=== PATIENT | male | born 1985 | race Caucasian/White ===

== ENCOUNTER 2016-09-24 06:51 | Inpatient (IN) | payer BC ==
[2016-09-15 09:28] VITALS: BMI 38.0
--- NOTE | 2016-09-15 09:53 | PAT Medication Instructions ---
Service Date Sep 15, 2016. Current Home Medication List Acetaminophen (Tylenol), 1,400 MG PO PRN Fluoxetine (Prozac), 20 MG PO QAM Medication Instructions For Your Scheduled Surgery - Take the following medications the morning of surgery with a sip of water OTHERWISE NOTHING TO EAT OR DRINK AFTER MIDNIGHT: Acetaminophen (Tylenol), 1,400 MG PO PRN (MAY TAKE IF NEEDED UP TO 4 HOURS PRIOR TO SURGERY) Fluoxetine (Prozac), 20 MG PO QAM If you have any questions please call us at [phone] or [phone] or [phone]
--- NOTE | 2016-09-15 10:33 | DIAGNOSTIC IMAGING REPORT ---
CHEST PREADMISSION(PA/LAT) CLINICAL HISTORY: PAT preoperative evaluation COMPARISON STUDY: No previous studies for comparison. FINDINGS: The bones soft tissues and hemidiaphragms are normal. The cardiomediastinal silhouette is normal. The lungs are clear. The pulmonary vasculature is normal. IMPRESSION: Negative chest. Electronically signed by: Bijan Sidhu M.D. 09/15/2016 10:32 AM Dictated Date/Time: 09/15/2016 10:30 AM
[2016-09-15 10:56] LABS: URINE APPEARANCE CLEAR (CLEAR); URINE BILIRUBIN NEG (NEG); URINE COLOR YELLOW; URINE NITRITE NEG (NEG); URINE PH 5.5 (4.5-7.5); URINE SPECIFIC GRAVITY 1.022 (1.000-1.030); UROBILINOGEN NEG (NEG)
[2016-09-15 10:56] LABS: BASO % 0.4 %; BASO ABS # 0.02 K/uL (0-0.2); COMPLETE YES; EOS % 2.9 %; HEMATOCRIT 48.7 % (42-52); IG% 0.4 %; LYMPH % 26.5 %; LYMPH ABS # 1.46 K/uL (1.2-3.4); MEAN CELL VOLUME 83.1 fL (80-100); MEAN CORPUSCULAR HEMOGLOBIN 28.5 pg (25-34); MEAN CORPUSCULAR HGB CONC 34.3 g/dl (32-36); NEUT % 57.8 %; PLATELET COUNT 200 K/uL (130-400); RED BLOOD COUNT 5.86 M/uL (4.7-6.1); WHITE BLOOD COUNT 5.51 K/uL (4.8-10.8)
[2016-09-15 11:07] LABS: MANUAL MICROSCOPIC REQUIRED? NO; REVIEW REQ? NO
[2016-09-15 11:20] LABS: BUN/CREATININE RATIO 12.6 (10-20); CALCIUM 9.5 mg/dl (8.5-10.1); CREATININE 1.2 mg/dl (0.60-1.40); POTASSIUM 4.1 mmol/L (3.5-5.1)
[~2016-09-24] VITALS: Ht 177.8 cm; Wt 121.1 kg
[2016-09-24] VITALS (16 sets, daily range): BP systolic 113–136; BP diastolic 69–80; PULSE 63–89; TEMP 36.5–37.5; O2SAT 92–99; Ht 177.8 cm; Wt 121.1 kg
[~2016-09-24 06:51] MED LIST: ACET-1311 PO; CEFAZOLIN 3000 MG/65 ML D5W IV SCH; CeleBREX 200 MG CAP PO SCH; FLUO20CA35 PO; LACTATED RINGER'S 1000ML 1,000 ML IV SCH; PREGABALIN 75 MG CAP PO SCH
[2016-09-24] MEDS ORDERED: EpHEDrine SULFATE INJ 50 MG/ML AMP IV PRN (08:15)
[2016-09-24] MEDS ORDERED: ONDANSETRON INJ 2 MG/ML 2 ML VIAL IV PRN ×2 (08:15→12:00)
[2016-09-24] MEDS ORDERED: ATROPINE SULFATE 0.1 MG/ML 5ML SYR IV PRN (08:15)
[2016-09-24] MEDS ORDERED: EpHEDrine SULFATE INJ 50 MG/ML AMP ONE (08:52)
[2016-09-24] MEDS ORDERED: DEXAMETHASONE SOD INJ 4 MG/ML VIAL ONE (08:52)
[2016-09-24] MEDS ORDERED: ROCURONIUM BROMIDE 10 MG/ML 5 ML VIAL ONE (08:52)
[2016-09-24] MEDS ORDERED: SUCCINYLCHOLINE CHLORIDE 20 MG/ML 10 ML VIAL IV ONE (08:52)
[2016-09-24] MEDS ORDERED: LIDOCAINE HCL 2% 2 ML VIAL (20MG/ML) ONE (08:52)
[2016-09-24] MEDS ORDERED: NEOSTIGMINE METHYLSULFATE 5 MG/5 ML SYR ONE (08:52)
[2016-09-24] MEDS ORDERED: FENTANYL CITRATE INJ 50 MCG/1 ML 2 ML VIAL ONE ×3 (08:52→11:05)
[2016-09-24] MEDS ORDERED: ONDANSETRON INJ 2 MG/ML 2 ML VIAL ONE (08:52)
[2016-09-24] MEDS ORDERED: PHENYLEPHRINE HCL INJ 10 MG/ML VIAL ONE (08:52)
[2016-09-24] MEDS ORDERED: MIDAZOLAM HCL 1 MG/ML 2ML VIAL ONE (08:52)
[2016-09-24] MEDS ORDERED: GLYCOPYRROLATE INJ 0.2 MG/ML VIAL ONE ×2 (08:52→11:35)
[2016-09-24] MEDS ORDERED: PROPOFOL IV EMULSION 10 MG/ML 20 ML VIAL IV ONE (08:52)
--- NOTE | 2016-09-24 09:08 | History and Physical ---
History & Physical Date Sep 24, 2016. Chief Complaint neck and L arm pain History of Present Illness The patient is a 31 year old male with complaints of above for years. he has numbness into L hand. no R arm symptoms. no myelopathy. chronic headaches. failed conservative treatment. MRI show cervical HNP C5-7. L sided and central. Past Medical/Surgical History wrist surgery Additional History Hepatic Disease: No Endocrine Disorder: No Kidney Disease: No Heart Disease: No Bleeding Tendencies: No Infectious Diseases: No Allergies Coded Allergies: No Known Allergies (Unverified , 09/24/16) Home Medications Scheduled Acetaminophen (Tylenol), 1,400 MG PO PRN Fluoxetine (Prozac), 20 MG PO QAM Physical Examination Skin: warm/dry Eyes: normal inspection, sclerae normal ENT: normal ENT inspection, pharynx normal Head: normocephalic, atraumatic Neck: supple, trachea midline Respiratory/Chest: lungs clear, no respiratory distress Cardiovascular: regular rate, rhythm Back: normal inspection Extremities: normal inspection, normal range of motion Neurologic/Psych: no motor/sensory deficits, alert, normal reflexes, oriented x 3 Diagnosis C5-7 HNP Plan of Treatment C5-7 ACDF
[2016-09-24] MEDS ORDERED: BACITRACIN 50000 UNIT VIAL ONE (09:27)
[2016-09-24] MEDS ORDERED: THROMBIN 5000 UNITS KIT ONE (09:27)
[2016-09-24] MEDS ORDERED: LARYING-O-JET KIT (LTA) EXT ONE ×2 (10:30)
--- NOTE | 2016-09-24 11:41 | [facility] Post Operative Brief Note ---
Immediate Operative Summary Operative Date Sep 24, 2016. Pre-Operative Diagnosis C5-C7 Herniated Nucleus Pulposus Post-Operative Diagnosis C5-C7 Herniated Nucleus Pulposus Procedure(s) Performed C5-C7 Anterior Cervical Discectomy and Fusion Surgeon Dr. David Lopez Terminal System Operator Surgeon(s) Zachary Hirsch PA-C Estimated Blood Loss 10ML Findings dict Specimens none per surgeon Dr. David Lopez
[2016-09-24] MEDS ORDERED: FLOSEAL HEMOSTATIC MATRIX 5ML TOP ONE (11:42)
[2016-09-24] MEDS ORDERED: OXYC-57 PO (11:45)
--- NOTE | 2016-09-24 11:46 | Discharge Instructions ---
Discharge Instructions Admission Reason for Admission: Cervical Spinal Stenosis Discharge Discharge Diagnosis / Problem: Cervical Stenosis Discharge Goals Goal(s): Decrease discomfort, Improve function, Increase independence Activity Recommendations Activity Limitations: as noted below Lifting Limitations: no more than 5 pounds Exercise/Sports Limitations: until after follow-up appointment May Resume Sexual Activity: after follow-up appointment Shower/Bathe: may shower/bathe in 3 days . Instructions / Follow-Up Instructions / Follow-Up ACTIVITY RECOMMENDATIONS: SELF CARE INSTRUCTIONS AFTER CERVICAL FUSIONS 1. No smoking. Smoking drastically decreases the chance of a solid fusion. 2. No bending, lifting more than 5 pounds, or twisting (roll like a log when turning in bed). 3. You may shower 3 days after surgery. Thoroughly dry wound. Do not soak in the tub. 4. Cervical collar: Must be worn at all times including sleeping. You may remove the brace only to bath, eat and if you are sitting in a recliner. 5. Please walk as much as you can for exercise. Gradually increase the distance that you walk as your endurance increases. SPECIAL CARE INSTRUCTIONS: VERY IMPORTANT TO READ AND REVIEW A. Do not take any anti-inflammatory medications (i.e. Indocin, Advil, Aspirin, Naprosyn, Aleve, Motrin, etc.) as these may inhibit the chance of a solid fusion. Tylenol is okay to take. B. Your surgical incision has been closed with a cosmetic suture under the skin that will dissolve in about 6 weeks. In 14 days, you can use a pair of clean scissors and cut the suture that is left outside of the skin at the ends of your incision. C. Complications are uncommon, but please contact us if you have any signs or symptoms of: 1. wound infection (fever higher than 102.5 degrees F, redness, separation of wound, drainage, or increasing pain from the incision) 2. blood clots in legs (pain, swelling, redness and warmth in legs) 3. urinary tract infection (fever higher than 102.5 degrees, burning upon urination or increased frequency of urination) 4. nerve problems (inability to walk on your toes or heels, numbness, loss of bowel or bladder control) 5. any other symptoms that concern you. D. Please call the office at if you have any concerns or questions about your operation or recovery. MANAGING PAIN AFTER SPINAL SURGERY 1. Narcotic medication is intended for short-term use and will be provided for surgical pain. Surgical pain usually lasts for a period of 4-6 weeks. Narcotic medication includes Percocet, Vicodin, Darvocet, Tylenol #3 or Lortab. 2. Longer-term pain is more appropriately treated with non-narcotic medication such as Tylenol ES. 3. Muscle spasm is not appropriately treated with narcotics. Muscle relaxers such as Soma, Flexeril or Skelaxin can be used along with Tylenol ES. 4. Remember that we all live with some "aches and pains". This is not unusual or uncommon after an injury or as we get older. 5. We will provide appropriate medication within the normal guidelines of their prescribed use. We will also be very cautious and aware of potential abuse and extended duration of patients' medication needs. 6. Please allow 2-3 days to process refills. Prescriptions will not be mailed but must be picked up at the office. FOLLOW UP VISIT: Keep your scheduled follow-up appointment. Any questions, please call the office at . Current Hospital Diet Patient's current hospital diet: Discharge Diet Recommended Diet: Regular Diet Procedures Procedures Performed: C5-C7 Anterior Cervical Discectomy and Fusion Pending Studies Studies pending at discharge: no Medical Emergencies . Who to Call and When: Medical Emergencies: If at any time you feel your situation is an emergency, please call 911 immediately. . Non-Emergent Contact Non-Emergency issues call your: Surgeon Call Non-Emergent contact if: temperature is above 101, your pain is not controlled, your pain is worsening, your pain is unusual for you, your pain is concerning you, wound has increased drainage, wound has increased redness, wound has increased pain, you have any medication questions . "Provider Documentation" section prepared by Shmuel Hirsch. VTE Core Measure Inpt VTE Proph given/why not?: Jose Alberto Jimenez
[2016-09-24] MEDS ORDERED: NALOXONE HCL 0.4 MG/1 ML VIAL/CARP IV PRN (12:00)
[2016-09-24] MEDS ORDERED: OXYCODONE HCL IR 5 MG TAB (IMMEDIATE RELEASE) PO PRN (12:00)
[2016-09-24] MEDS ORDERED: ACETAMINOPHEN IV 1,000 MG in EMPTY BAG 0 ML IV PRN (12:00)
[2016-09-24] MEDS ORDERED: LORAZEPAM 0.5 MG TAB PO PRN (12:00)
[2016-09-24] MEDS ORDERED: DEXAMETHASONE INJ 8 MG in SYRINGE 0 ML IV PRN (12:00)
[2016-09-24] MEDS ORDERED: RACEPINEPHRINE 2.25% NEBU SOLN 0.5 ML VIAL INH PRN (12:00)
[2016-09-24] MEDS ORDERED: LORAZEPAM INJ 0.5 MG in SYRINGE 0.75 ML IV PRN (12:00)
[2016-09-24] MEDS: FENTANYL CITRATE INJ 50 MCG/1 ML 2 ML VIAL IV PRN ×3 (12:15→12:53)
--- NOTE | 2016-09-24 13:38 | Anesthesiology Progress Note ---
Anesthesia Post Op Note Date & Time Sep 24, 2016 at 13:39 Vital Signs Pain Intensity: 3 Vital Signs Past 12 Hours Date Time Temp Pulse Resp B/P Pulse Ox O2 Delivery O2 Flow Rate FiO2 09/24/16 13:15 70 16 127/70 95 Nasal Cannula 2 09/24/16 13:05 70 16 131/80 94 Nasal Cannula 2 09/24/16 12:55 72 16 138/72 95 Nasal Cannula 2 09/24/16 12:45 71 16 140/77 95 Nasal Cannula 2 09/24/16 12:35 73 14 141/77 96 Nasal Cannula 2 09/24/16 12:25 81 16 144/79 92 Room Air 09/24/16 12:15 74 12 152/91 98 Mask 10 09/24/16 12:05 80 12 147/93 97 Mask 10 09/24/16 11:56 36.2 73 12 175/94 97 Mask 10 09/24/16 07:14 36.5 74 20 130/77 99 Room Air Notes Mental Status: alert / awake / arousable, participated in evaluation Pt Amnestic to Procedure: Yes Nausea / Vomiting: adequately controlled Pain: adequately controlled Airway Patency, RR, SpO2: stable & adequate BP & HR: stable & adequate Hydration State: stable & adequate Anesthetic Complications: no major complications apparent
[2016-09-24] MEDS ORDERED: MoRPHine SULFATE 4 MG/ML 1 ML CARP\\VIAL ONE (14:02)
[2016-09-24] MEDS: MoRPHine SULFATE 10 MG/ML CARP/VIAL IV PRN ×2 (14:10→14:15)
--- NOTE | 2016-09-24 14:24 | DIAGNOSTIC IMAGING REPORT ---
INTRAOPERATIVE FLUOROSCOPIC IMAGES OF THE CERVICAL SPINE CLINICAL HISTORY: ACDF C5-7 COMPARISON STUDY: No previous studies for comparison. Fluoroscopy time: 10 seconds. FINDINGS: 4 fluoroscopic images were submitted for interpretation. These images demonstrate C5-C6 and C6-C7 discectomies with anterior fusion. Surgical drain is in place. Hardware is intact. Nasogastric and endotracheal tubes are partially imaged. IMPRESSION: Expected findings following C5-C6 and C6-C7 anterior discectomies and fusion. Electronically signed by: Anderson Lamar M.D. 09/24/2016 2:23 PM Dictated Date/Time: 09/24/2016 2:21 PM
[2016-09-24] MEDS ORDERED: IV FLUIDS COMPLETED PRN (14:30)
[2016-09-24] MEDS: HYDROmorphone INJ 1 MG/ML SYR IV PRN ×3 (16:26→23:06)
[2016-09-24] MEDS ORDERED: SCOPOLAMINE 1.5 MG TDSY TD SCH (17:00)
[2016-09-24] MEDS: SODIUM CHLORIDE 0.9% 1000ML 1,000 ML IV SCH (18:19)
[2016-09-24] MEDS: DEXAMETHASONE INJ 6 MG in SYRINGE 0 ML IV SCH (18:20)
[2016-09-24] MEDS: CEFAZOLIN IV 2,000 MG in DEXTROSE 5% 50ML 50 ML IV SCH (18:20)
[2016-09-24] MEDS: CHECK SCOPOLAMINE PATCH PLACEMENT SCH (22:59)
[2016-09-25] VITALS (7 sets, daily range): BP systolic 105–128; BP diastolic 64–77; PULSE 65–72; TEMP 36.6–36.7; O2SAT 91–98
[2016-09-25] MEDS: CEFAZOLIN IV 2,000 MG in DEXTROSE 5% 50ML 50 ML IV SCH ×2 (02:06→10:12)
[2016-09-25] MEDS: DEXAMETHASONE INJ 6 MG in SYRINGE 0 ML IV SCH ×2 (02:06→10:09)
[2016-09-25] MEDS: HYDROmorphone INJ 1 MG/ML SYR IV PRN ×2 (02:08→08:24)
[2016-09-25] MEDS: SODIUM CHLORIDE 0.9% 1000ML 1,000 ML IV SCH (05:15)
[2016-09-25] MEDS: CHECK SCOPOLAMINE PATCH PLACEMENT SCH (06:56)
[2016-09-25] MEDS ORDERED: FLUOXETINE HCL 20 MG CAP PO SCH (09:00)
--- NOTE | 2016-09-25 12:56 | DISCHARGE SUMMARY ---
PRINCIPLE DIAGNOSIS: Cervical stenosis, cervical disc disease. POSTOPERATIVE DIAGNOSIS: Remains Same. PROCEDURE: ACDF C5-C7. SURGEON: Dr. David Lopez. COURTESY CLERK: Shmuel Hirshc PA-C. HISTORY OF PRESENT ILLNESS: Please refer to EMR. HOSPITAL COURSE: On 09/24/2016 Mr. Bernal was admitted to [facility] with the above diagnosis. He was taken to preoperative holding where he was identified, evaluated, and cleared for surgical procedure. He was taken to the operating room, introduced with general endotracheal anesthesia. Sterile conditions were set and he successfully underwent a C5-C7 ACDF without complication or issue. He was awakened in stable and satisfactory condition and placed in a hard collar immobilization taken to postoperative recovery where his vital signs and pain were monitored and properly managed. He was then taken to the orthopedic floor for continued care. Throughout his stay, he had no issues. Pain was well managed. No difficulty swallowing or breathing. Incision remained clean and dry. His ZBIGNIEW was functioning. He was evaluated the morning 09/25/2016 indicated for return home. On this date he was discharged from [facility]. DISPOSITION: Home. DISPOSITION CONDITION: Stable. NOTED COMPLICATIONS OR ISSUES: Zero. DISCHARGE INSTRUCTIONS: Please refer to EMR.
--- NOTE | 2016-09-25 17:09 | OPERATIVE REPORT ---
DATE OF OPERATION: 09/24/2016 PREOPERATIVE DIAGNOSES: 1. C5-C6, C6-C7 disc herniations. 2. C5-C6, C6-C7 disc degeneration. POSTOPERATIVE DIAGNOSIS: Same. PROCEDURES: 1. Anterior cervical discectomy and fusion and application of PEEK intervertebral spacer with local autograft and DBM putty C5-C6. 2. Anterior cervical discectomy and fusion and application of PEEK intervertebral spacer from LDR with local bone and bone putty. 3. Anterior cervical instrumentation C5-C6, C6-C7 with LDR NARA-C anterior cervical blade plates. SURGEON: Dr. Lopez. ELECTROENCEPHALOGRAPHIC TECHNICIAN: Shmuel Hirsch PA-C. Please note he participated in all portions of the procedure and was critical for performance of procedure, participated in positioning, prepping, draping, retraction, and wound closure. ANESTHESIA: General endotracheal anesthesia. COMPLICATIONS: None. ESTIMATED BLOOD LOSS: Minimal. OPERATION AND FINDINGS: PROCEDURE: After identification of patient and operative level, he was brought to the OR where he underwent induction of general anesthesia. He was then positioned supine on Phu OR table with all bony prominences well padded. The arms tucked at sides and well padded. Shoulders were taped distally and the anterior neck was sterilely prepped and draped in the usual fashion. Antibiotics were administered. Time-out was performed. Level was confirmed and transverse skin incision was made on the right side of the neck at the level of the cricoid cartilage. I divided the platysma in line with the incision and performed routine anterior cervical exposure with blunt dissection, identified the presumptive disc spaces and marked with fluoroscopy and electrocautery. I mobilized longus colli and then placed self-retaining cervical retractor. [place] pins were placed in the body of C5 and C7 and distraction was applied. I confirmed level with fluoroscopy again and then did complete discectomies at C5-C6 and C6-C7. I took down the posterior osteophytes with a leanne and then removed the posterior annulus and PLL at C5-C6 and C6-C7. I performed foraminotomies as necessary and palpated the nerve roots were decompressed bilaterally at C5-C6 and C6-C7. I then applied FloSeal for hemostasis and decorticated the endplates at C5-C6 and C6-C7 with a high speed bur. I determined graft size with trial sizers, filled the PEEK cages of appropriate size with local bone and DBM putty and then tamped the cages into position at C5-C6 and C6-C7. I then deployed the NARA-C blades through the insertion handle at C5-C6, C6-C7 and confirmed final cage and blade position with fluoroscopy. I then irrigated with bacitracin solution and confirmed hemostasis and closed in layered fashion over a small round drain. All sponge and needle counts were correct at the end of the case. I attest to the content of the Intraoperative Record and any orders documented therein. Any exceptio ns are noted below.
== END 2016-09-25 11:24 | disposition home or self-care (01) | DRG 473 ==
LOC: ENRESERVTM → ENRESERVDT → C.ACU 06:51 → C.3E 06:58 → OBSVTOIN 06:58
PROVIDERS: ADMIT Orthopaedic Surgery Orthopaedic Surgery of the Spine; ATTEND Orthopaedic Surgery Orthopaedic Surgery of the Spine
PROC: 0RT30ZZ Resection of Cervical Vertebral Disc, Open Approach (ICD-10-PCS; principal; 2016-09-24 09:00)
PROC: 0RG20A0 Fusion of 2 or more Cervical Vertebral Joints with Interbody Fusion Device, Anterior Approach, Anterior Column, Open Approach (ICD-10-PCS; principal; 2016-09-24 09:00)
PROC: 0RG2070 Fusion of 2 or more Cervical Vertebral Joints with Autologous Tissue Substitute, Anterior Approach, Anterior Column, Open Approach (ICD-10-PCS; principal; 2016-09-24 09:00)
DX: M50.222 Other cervical disc displacement at C5-C6 level (principal); M50.322 Other cervical disc degeneration at C5-C6 level; F41.9 Anxiety disorder, unspecified; F32.9 Major depressive disorder, single episode, unspecified; F17.210 Nicotine dependence, cigarettes, uncomplicated; E66.9 Obesity, unspecified; Z68.38 Body mass index [BMI] 38.0-38.9, adult; Z79.899 Other long term (current) drug therapy